=== PATIENT | female | born 1985 | race Two or more races ===

== ENCOUNTER 2016-11-10 10:51 | Inpatient (IN) ==
--- NOTE | 2016-11-10 11:44 | Emergency Department Note ---
Tonia Ayala Mantricia, am scribing for, and in the presence of, Guillermo Estrada MD 11:29. Natalie Ayala James D, MD, personally performed the services described in this documentation, ascribed by Anthony Randall in my presence, and it is both accurate and complete . Arrival - Arrival Chief Complaint: Urogenital - Female Stated Complaint: preg/bleeding and cramping ED Nursing Triage Note: reports that she was having abd cramping and went to bathroom and had clear fluid come out and can feel something trying to come out of vagina. denies bleeding. a1 is about 18 weeks Mode of Arrival: Wheelchair Limitations: No Limitations Source: Patient Time Seen by Provider: 11/10/16 11:16 - History of Present Illness HPI Narrative: Pt is a 31 y/o female arriving to ED via wheelchair with c/o abdominal cramping that onset today. She reports that she is 18 weeks and has experienced abdominal cramps today. Pt reports that once using the restroom, she saw drainage and seemed like "something was in her vagina." She states that her LNMP was 07/11/16 and is due 03/2016. She states that she will see her OBGYN next week for an ultrasound. A1. No other complaints were reported to ED. Onset (ago): hour(s) Consistency: constant Severity: mild Allergies/Adverse Reactions: Allergies Allergy/AdvReac Type Severity Reaction Status Date / Time No Known Allergies Allergy Unverified 08/29/16 10:21 Home Medications: Home Medications Medication Instructions Recorded Confirmed Type No122/Iron/Folic Acid 1 each PO QAM 11/10/16 11/10/16 History [ Multi Tablet] Review of System - Review of System 12 point system: reviewed and no additional remarkable complaints except as stated - Review of System Constitutional: Absent: chills, diaphoresis, fever Respiratory: Absent: cough Cardiovascular: Absent: chest pain Gastrointestinal: Present: abdominal pain (cramps). Absent: nausea, vomiting, diarrhea Genitourinary female: Present: other ("something in vagina"). Absent: abnormal menses, dysuria Musculoskeletal: Absent: arm pain, back pain, leg pain, neck pain Medical,Surgical,& Family Hx - Medical History Neurology: No history of: Seizures - Social History Smoking Status: Never smoker Exam Vital Signs: Vital Signs Temperature 97.4 F L 11/10/16 10:54 Pulse Rate 89 11/10/16 10:54 Respiratory Rate 18 11/10/16 10:54 Blood Pressure 121/82 11/10/16 10:54 O2 Sat by Pulse Oximetry 98 11/10/16 10:54 GENERAL: This is a well-nourished well-developed female in no apparent distress. VITAL SIGNS: Reviewed HEENT: Head is atraumatic and normocephalic. Pupils are equal round react to light. Extraocular movements are intact. Oropharynx is benign with moist mucous membranes. ABDOMEN: Abdomen is soft, nontender to palpation. Gravid abdomen. Fundus palpable at umbilicus. There are no abdominal abnormal masses palpated. Bowel sounds are present and active. SKIN: Skin is warm and dry. No rash. EXTREMITIES: Patient has full range of motion without tenderness. There is no pedal edema. NEUROLOGIC: Awake alert and oriented 4. Cranial nerves II through XII are grossly intact. Motor is 5 over 5 in all extremities bilaterally. Course - Consultations Consultation #1: Discussed with Dr. Genao. Patient will be admitted to Dr. Abdi. Initial orders written for her. Care will be assumed by OB upon arrival to the farrar . Time: 12:34 Disposition Clinical Impression: Pelvic pain, Threatened Case discussed with: patient Disposition: Still a Patient Condition: Stable Time of Disposition: 12:35
[2016-11-10 11:53] LABS: Apearance,Urine CLEAR (Clear); Bacteria,Urine Occasional /HPF (Few); Bilirubin,Urine Negative (Negative); Blood, Urine Negative (Negative); Glucose,Urine (UA) Negative (Negative); Ketones,Urine Negative (Negative); Mucus,Urine Occasional /LPF (Occasional); Nitrite,Urine Negative (Negative); Protein,Urine Negative; RBC,Urine <1 /HPF (0-4); Squamous Epithelial Cell,Urine Occasional /HPF (0-10); Urine Color Yellow (Yellow); Urine Specific Gravity 1.011 (1.001-1.035); Urine Urobilinogen < 2.0 EU/DL (0.2-1.0); WBC,Urine 1 /HPF (0-6)
[2016-11-10 12:52] LABS: Basophils # 0.1 10*3/uL (0.0-0.2); Basophils % 0.6 % (0.0-0.8); Eosinophils # 0.1 10*3/uL (0.0-0.87); Hematocrit 33.9 VOL% (35.7-47.0); Hemoglobin 11.2 GM/DL (12.0-16.0); Immature Granulocytes % 0.5 %; Immature Granulocytes Absolute 0.04 #; Lymphocytes # 1.8 10*3/uL (1.4-4.0); Lymphocytes % 19.7 % (21.3-54.2); Mean Corpuscular Hemoglobin 26 PG (27-34); Mean Corpuscular Volume 77.8 FL (87-102); Mean Platelet Volume 10.7 FL (9.6-12.0); Monocytes # 0.4 10*3/uL (0.11-0.8); Neutrophils # 6.5 10*3/uL (1.4-7.4); Neutrophils % 73.2 % (38.7-73.9); Platelet Count 268 T/CUMM (130-400); Red Blood Count 4.36 MC/CUMM (3.8-5.5); Red Cell Distribution Width 15.4 % (9.3-17.3); White Blood Count 8.9 T/CUMM (4-12)
[2016-11-10 13:02] LABS: INR 0.9; PT Patient Result 9.9 SECS; Partial Thromboplastin Time 26.8 SECS (0-40)
[2016-11-10 13:20] LABS: Alanine Aminotransferase 19 U/L (13-56); Albumin 2.8 G/DL (3.4-5.0); Alkaline Phosphatase 53 U/L (45-117); Aspartate Amino Transferase 19 U/L (0-37); Bilirubin,Total < 0.39 MG/DL (0.2-1.0); Blood Urea Nitrogen 10 MG/DL (7-18); Calcium 8.3 MG/DL (8.5-10.1); Glucose 78 MG/DL (74-106); Osmolality,Calculated 276.4 MOS/KG (273-304); Sodium 140 MMOL/L (136-145); Total Protein 6.7 G/DL (6.4-8.3)
[2016-11-10] MEDS ORDERED: MAGNESIUM HYDROXIDE SUSP 30 ML UDCUP PO PRN (13:43)
[2016-11-10] MEDS ORDERED: BISACODYL 10 MG SUPP RECTAL PRN (13:43)
[2016-11-10] MEDS ORDERED: ACETAMINOPHEN 325 MG TABLET PO PRN (13:43)
--- NOTE | 2016-11-10 15:11 | Ultrasound Report ---
Limited OB ultrasound. Indication: Pelvic pain and pressure. Spotting. Comparison: August 29, 2016. There is a single intrauterine gestation in a transverse lie. There is no amnionic fluid within the uterus. There is partial effacement and dilatation of the cervix, with bulging membranes containing fluid within the vaginal canal. The placenta is located fundal. The heart rate is 152 bpm. There is increased soft tissue along the posterior margin of the cervix, which is separate from the fetus and separate from the placenta. This may represent an area of lower uterine segment contraction. The maternal ovaries are not seen. Impression: There is dilatation of the cervix and bulging membranes within the vaginal canal. There is no fluid surrounding the fetus within the uterus. The Ultrasound images were captured and stored. PROCEDURE INTERPRETED AT [facility] DEPARTMENT OF RADIOLOGY Final Report Signed by: Dr. Maxine Rockwell
[2016-11-10] MEDS: DOCUSATE SODIUM 100 MG CAPSULE PO SCH (20:55)
[2016-11-10] MEDS: LACTATED RINGERS 1,000 ML IV SCH ×2 (21:50→21:51)
[2016-11-10] MEDS: ACETAMINOPHEN 500 MG TABLET PO PRN (21:55)
[2016-11-11] MEDS: LACTATED RINGERS 1,000 ML IV SCH ×2 (01:07→10:57)
--- NOTE | 2016-11-11 08:49 | OB/GYN History & Physical ---
History of Present Illness Chief complaint: Pelvic pressure History of present illness: Ms. Chan is a 31 year old female 17+ weeks gestation who presented with complaints of vaginal pressure. Upon examination she was found to have hourglassing membranes into the vagina. On ultrasound she was found to have a viable IUP however all amniotic fluid. Hourglass to the vagina. Home Medications Medication Instructions Recorded Confirmed Type No122/Iron/Folic Acid 1 each PO QAM 11/10/16 11/10/16 History [ Multi Tablet] Allergies Allergy/AdvReac Type Severity Reaction Status Date / Time No Known Allergies Allergy Unverified 08/29/16 10:21 12 point system: reviewed and no additional remarkable complaints except as stated Medical,Surgical,& Family Hx - Medical History Neurology: No history of: Seizures - Social History Smoking Status: Never smoker Exam AGENT BROKER - Constitutional Vitals: Vital Signs Temp Pulse Pulse Resp BP BP Pulse Ox 11/11/16 08:00 97.1 F L 73 18 94/51 11/11/16 04:00 97.6 F 68 18 89/50 11/11/16 00:00 97.6 F 81 18 103/59 11/10/16 20:00 98 F 75 18 113/69 11/10/16 16:00 97.1 F L 82 18 100/56 11/10/16 12:50 79 16 116/71 100 11/10/16 12:30 78 16 121/79 100 11/10/16 12:00 73 16 110/62 100 11/10/16 11:30 79 16 116/74 100 11/10/16 11:02 82 16 123/73 100 11/10/16 10:54 97.4 F L 89 18 121/82 98 Pulse Ox 11/11/16 08:00 99 11/11/16 04:00 11/11/16 00:00 98 11/10/16 20:00 100 11/10/16 16:00 99 11/10/16 12:50 11/10/16 12:30 11/10/16 12:00 11/10/16 11:30 11/10/16 11:02 11/10/16 10:54 General appearance: no acute distress - Antepartum / Post Antepartum Exam Cervix - Dilatation: Membranes bulging through cervical os Station: parts in the vagina Rupture: Intact hourglassing into the vagina Abdomen obstetrics: Present: bowel sounds normal - Head Head exam: Present: normocephalic - ENT ENT exam: Present: normal exam - Neck Neck exam: Present: normal inspection - Respiratory Respiratory exam: Present: clear to auscultation bilaterally - Cardiovascular Cardiovascular exam: Present: regular rate and rhythm - GI/Abdominal GI/Abdominal exam: Present: normal bowel sounds, soft - Extremities Exam Extremities exam: Present: normal inspection - Back Exam Back exam: Present: normal inspection - Neurological Exam Neurological exam: Present: alert, oriented X3 - Psychiatric Psychiatric exam: Present: normal affect, normal mood - Skin Skin exam: Present: normal color, warm Assessment and Plan (1) labor in second trimester Status: Acute Assessment and plan: Patient placed in Trendelenburg position. I had a lengthy discussion with her and her regarding her risk of infection, premature delivery, and the risk of severe prematurity. We discussed conservative management, expectant management, as well as termination of . Patient was last to discuss her options with her at this time. Current Visit: Yes (2) 17 weeks gestation of Status: Acute Current Visit: Yes Results - Labs CBC & BMP: 11/13/16 05:19 11/10/16 12:34
[2016-11-11] MEDS: DOCUSATE SODIUM 100 MG CAPSULE PO SCH ×3 (18:49→21:15)
[2016-11-11] MEDS ORDERED: BUTORPHANOL 2 MG/ML VIAL IV PRN (22:44)
[2016-11-12] MEDS ORDERED: OXYTOCIN/LR 20 UNIT/1,000 ML BAG IV ONE ×2 (07:25→15:45)
[2016-11-12] MEDS ORDERED: miSOPROStol 200 MCG TABLET ONE (07:25)
--- NOTE | 2016-11-12 09:16 | OB/GYN Progress Note ---
Assessment and Plan (1) labor in second trimester Status: Acute Assessment and plan: Patient placed in Trendelenburg position. I had a lengthy discussion with her and her regarding her risk of infection, premature delivery, and the risk of severe prematurity. We discussed conservative management, expectant management, as well as termination of . Patient was last to discuss her options with her at this time. Following another discussion with the family they have decided to proceed with expedited termination of this . Therefore the fore bag was ruptured the expected vaginal delivery sometime today. Patient started on IV Ancef 2 g q. 8 as fluid has a foul-smelling odor. Current Visit: Yes (2) 17 weeks gestation of Status: Acute Current Visit: Yes PLUMBER SUPERVISOR - PN: Subj Interval history: Patient admits to leaking of fluid earlier this morning Exam PLUMBER SUPERVISOR - Constitutional Vitals: Vital Signs Temp Pulse Resp BP Pulse Ox 11/12/16 07:31 97.3 F L 77 20 101/56 99 11/12/16 00:00 98 F 73 18 105/53 98 11/11/16 23:30 98.0 F 73 18 105/53 98 11/11/16 16:00 97.3 F L 84 16 90/52 11/11/16 12:00 97.4 F L 81 18 87/49 - Antepartum / Post Antepartum Exam Cervix - Dilatation: 5-6 cm Effacement: 70% Station: parts in the vaginal vault Rupture: Ruptured membrane with foul-smelling fluid. For bag Results - Labs CBC & BMP: 11/10/16 12:34 11/10/16 12:34
[2016-11-12] MEDS: ceFAZolin 2,000 MG in PREMIX 1 EACH IV SCH ×2 (09:25→17:00)
[2016-11-12] MEDS: ACETAMINOPHEN 500 MG TABLET PO PRN (09:49)
[2016-11-12] MEDS: ONDANSETRON 4 MG/2 ML VIAL IV PRN ×2 (09:50→17:11)
[2016-11-12] MEDS: DOCUSATE SODIUM 100 MG CAPSULE PO SCH (10:31)
[2016-11-12] MEDS ORDERED: oxyCODONE/ACETAMINOPHEN 5-325 MG TABLET PO PRN ×2 (15:45)
[2016-11-12] MEDS ORDERED: HYDROCORTISONE 2.5% RECTAL CREAM 30 GM TUBE TOP PRN (15:45)
[2016-11-12] MEDS ORDERED: MEASLES/MUMPS/RUBELLA VACCINE 0.5 ML VIAL SUBCUT ONE (15:45)
[2016-11-12] MEDS ORDERED: BENZOCAINE 20%/MENTHOL 0.5% SPRAY 56 GM CAN TOP PRN (15:45)
[2016-11-12] MEDS ORDERED: ONDANSETRON 4 MG/2 ML VIAL IV PRN (15:45)
[2016-11-12] MEDS ORDERED: LANOLIN 50% CREAM 0.3 OZ TUBE TOP PRN (15:45)
[2016-11-12] MEDS ORDERED: RHO(D) IMMUNE GLOBULIN 300 MCG SYRINGE IM ONE (15:45)
[2016-11-12] MEDS ORDERED: WITCH HAZEL PADS 100/JAR TOP PRN (15:45)
[2016-11-12] MEDS ORDERED: IBUPROFEN 800 MG TABLET PO PRN (15:45)
[2016-11-12] MEDS ORDERED: DIPH/TET/ACEL PERT BOOSTER VACCINE 0.5 ML VIAL IM ONE (15:45)
[2016-11-12] MEDS ORDERED: ACETAMINOPHEN 325 MG TABLET PO PRN (15:45)
[2016-11-12] MEDS ORDERED: BISACODYL 10 MG SUPP RECTAL PRN (15:45)
--- NOTE | 2016-11-12 15:45 | Operative Note ---
Date of procedure: 11/12/16 Procedure Preformed: Spontaneous vaginal delivery of a 17 week fetus Patient spontaneously delivered stillborn fetus at 17 weeks via spontaneous vaginal delivery. The umbilical cord was clamped and cut and left to deliver spontaneously. Patient tolerated procedure well without compensation incident. Perineum intact. Bleeding well controlled. Surgeon / Physician: Rosanne Abdi Post-op diagnosis: same Findings: Stillborn fetus at 17 weeks Specimens: other (Placenta to be sent) Estimated blood loss: other (50 mL) Condition: stable Anesthesia: none Disposition: other (Labor and delivery)
[2016-11-12] MEDS ORDERED: DOCUSATE SODIUM 100 MG CAPSULE PO SCH (21:00)
[2016-11-13 06:18] LABS: Basophils % 0.3 % (0.0-0.8); Eosinophils # 0.1 10*3/uL (0.0-0.87); Hematocrit 26.8 VOL% (35.7-47.0); Hemoglobin 8.7 GM/DL (12.0-16.0); Immature Granulocytes % 0.3 %; Immature Granulocytes Absolute 0.04 #; Lymphocytes # 2.2 10*3/uL (1.4-4.0); Lymphocytes % 19.2 % (21.3-54.2); Mean Corpuscular HGB Conc 32.5 GM/DL (32-36); Mean Corpuscular Hemoglobin 26 PG (27-34); Mean Corpuscular Volume 78.6 FL (87-102); Mean Platelet Volume 11.3 FL (9.6-12.0); Monocytes # 0.7 10*3/uL (0.11-0.8); Monocytes % 5.7 % (1.7-12.7); Neutrophils # 8.4 10*3/uL (1.4-7.4); Neutrophils % 73.5 % (38.7-73.9); Platelet Count 258 T/CUMM (130-400); Red Blood Count 3.41 MC/CUMM (3.8-5.5); Red Cell Distribution Width 15.3 % (9.3-17.3); White Blood Count 11.4 T/CUMM (4-12)
[2016-11-13 07:36] VITALS: BP 93/50
--- NOTE | 2016-11-13 08:03 | Discharge Summary ---
Hospital Course - Hospital Course Hospital Course: This is a 31-year-old female admitted 17 weeks gestation secondary to inevitable AB. On admission patient was found to have her bag of water bulging into the vagina with parts palpable. She subsequently ruptured her membranes within 24 hours of admission and delivered spontaneously a stillborn previable 17 week fetus. Diagnosis - Discharge Diagnosis (1) labor in second trimester Status: Acute (2) 17 weeks gestation of Status: Acute Discharge Plan - Discharge Data Disposition: Disch To Home/Self Care Condition at Discharge: Stable Discharge Diet: advance to your usual diet Activity: resume usual activities as tolerated (Pelvic rest) Hygiene: no restrictions Weight Bearing at Discharge: full weight bearing Driving: no restrictions Contact your physician if you experience:: fever over 101, Difficulty voiding, Redness or swelling, Nausea/Vomiting, Shortness of breath, Bleeding, pain uncontrolled by pain medications - Discharge Medications New HYDROcodone/ACETAMIN 5-325 [[place] 5-325] 1 tablet PO Q4H PRN #30 tablet PRN Reason: Pain Moderate (4-7) No Action No122/Iron/Folic Acid [ Multi Tablet] 1 each PO QAM - Follow Up or Referral Follow Up: Rosanne Abdi MD [Physician] - 1 Month - Forms/Instructions Exam - Constitutional Vitals: Period Temp Pulse Resp BP Sys/Stover Pulse Ox Last 24 Hr 97.3 F-98.8 F 68-100 17-20 93-115/50-71 98-99 General appearance: no acute distress - Head Head exam: Present: normocephalic - ENT ENT exam: Present: normal exam - Neck Neck exam: Present: normal inspection - Respiratory Respiratory exam: Present: clear to auscultation bilaterally - Cardiovascular Cardiovascular exam: Present: regular rate and rhythm - GI/Abdominal GI/Abdominal exam: Present: normal bowel sounds, soft - Extremities Exam Extremities exam: Present: normal inspection - Back Exam Back exam: Present: normal inspection - Neurological Exam Neurological exam: Present: alert, oriented X3 - Psychiatric Psychiatric exam: Present: normal affect, normal mood - Skin Skin exam: Present: normal color, warm Discharge Results Procedures and tests throughout hospitalization: Pending Orders 11/12/16 20:05 Anaerobic Culture Stat Anaerobic Culture Stat Wound Culture Stat Wound Culture Stat Labs on day of discharge: Labs from last 24 hours 11/13/16 05:19 WBC 11.4 RBC 3.41 L D Hgb 8.7 L D Hct 26.8 L MCV 78.6 L MCH 26 L MCHC 32.5 RDW 15.3 Plt Count 258 MPV 11.3 Neut % (Auto) 73.5 Lymph % (Auto) 19.2 L [place] % (Auto) 5.7 Eos % (Auto) 1.0 Baso % (Auto) 0.3 Neut # (Auto) 8.4 H Lymph # (Auto) 2.2 [place] # (Auto) 0.7 Eos # (Auto) 0.1 Baso # (Auto) 0.0 Immature Gran % 0.3 Nucleated RBC % 0.0 Immature Gran # 0.04 Nucleated RBCs # 0.00 Immature Plt Fraction 0.0 DS: Provider Date of admission: 11/11/16 08:45 Primary care physician: . No PCP Attending physician on admission: Rosanne Abdi MD Consults: 11/12/16 15:45 Consult to Business Continuity Planning Director [CONS] Routine Consult Business Continuity Planning Director: Breast Feeding Discharging clinician: Rosanne Abdi MD
--- NOTE | 2016-11-15 16:15 | Pathology Report from [facility] ---
[employer] [facility] [employer] ACCESSION # : [id number] PATIENT NAME : Ava Perkins ORDERING DR : JOHN CALLEJAS MD CLINICAL HX: IUP @ 17.4 wks gestation, PROM POST-OP DX: Same SPECIMEN INFO: Placenta GROSS DESCRIPTION: The specimen is received fresh labeled AVA PERKINS consists of a 105.0 gm placenta measuring 12.5 x 8.5 x 1.8 cm. The membranes are pink-platt and translucent. The umbilical cord measures 19.0 cm and is essentially inserted. The number of vessels difficult to grossly determine. The surface is oneill-pink and intact. The maternal surface is mildly disrupted with a 4.5 x 4.0 cm possible infarct noted. Sections submitted : (A) membranes and cord, (B) and maternal surfaces. DIAGNOSIS FOR AVA PERKINS: PLACENTA: Immature (2nd trimester) placenta with acute chorioamnionitis and focal infarction and necrosis. Bivascular umbilical cord. COLLECTED DATE: 11/13/2016 [facility] REPORT DATE: 11/15/2016 ELECTRONICALLY SIGNED BY: Curtis Craig III, M.D. 11/15/2016 - 12:14:20 JAXSON
== END 2016-11-13 11:29 | disposition home or self-care (01) | DRG 564 ==
LOC: N.EDINP 10:51 → N.ED 10:51 → N.EDINP 12:58 → N.LD 13:18
PROVIDERS: ADMIT Obstetrics & Gynecology; ATTEND Obstetrics & Gynecology

== ENCOUNTER 2016-12-17 12:40 | Observation (INO) ==
[2016-12-17 13:15] LABS: Apearance,Urine Clear (Clear); Bilirubin,Urine Negative (Negative); Blood, Urine Small mg/dL (Negative); Glucose,Urine (UA) Negative (Negative); Ketones,Urine Negative (Negative); Nitrite,Urine Negative (Negative); Protein,Urine 30 MG/DL
[2016-12-17 13:16] LABS: Urine Color Yellow (Yellow); Urine Urobilinogen 0.2 EU/DL (0.2-1.0)
[2016-12-17] MEDS ORDERED: SODIUM CHLORIDE 0.9% 1,000 ML IV STA (13:25)
[2016-12-17] MEDS ORDERED: ONDANSETRON 4 MG/2 ML VIAL IV STA (13:25)
[2016-12-17] MEDS ORDERED: MORPHINE 2 MG/1 ML SYRINGE IV STA (13:25)
[2016-12-17 13:41] LABS: Basophils # 0.1 10*3/uL (0.0-0.2); Basophils % 0.7 % (0.0-0.8); Eosinophils # 0.1 10*3/uL (0.0-0.87); Eosinophils % 1.4 % (0.00-10.9); Hematocrit 30.4 VOL% (35.7-47.0); Hemoglobin 9.6 GM/DL (12.0-16.0); Immature Granulocytes % 0.3 %; Immature Granulocytes Absolute 0.02 #; Lymphocytes # 1.4 10*3/uL (1.4-4.0); Lymphocytes % 19.3 % (21.3-54.2); Mean Corpuscular HGB Conc 31.6 GM/DL (32-36); Mean Corpuscular Hemoglobin 24 PG (27-34); Mean Corpuscular Volume 77.2 FL (87-102); Mean Platelet Volume 11.1 FL (9.6-12.0); Monocytes # 0.5 10*3/uL (0.11-0.8); Monocytes % 6.8 % (1.7-12.7); Neutrophils # 5.3 10*3/uL (1.4-7.4); Neutrophils % 71.5 % (38.7-73.9); Platelet Count 351 T/CUMM (130-400); Red Blood Count 3.94 MC/CUMM (3.8-5.5); Red Cell Distribution Width 13.9 % (9.3-17.3); White Blood Count 7.4 T/CUMM (4-12)
[2016-12-17] MEDS ORDERED: ONDANSETRON 4 MG/2 ML VIAL ONE (13:46)
[2016-12-17] MEDS ORDERED: MORPHINE 2 MG/1 ML SYRINGE ONE (13:46)
[2016-12-17 14:16] LABS: Albumin 3.4 G/DL (3.4-5.0); Bilirubin,Total 0.4 MG/DL (0.2-1.0); Calcium 8.3 MG/DL (8.5-10.1); Osmolality,Calculated 274.5 MOS/KG (273-304); Potassium 3.5 MMOL/L (3.5-5.1); Total Protein 7.4 G/DL (6.4-8.3)
[2016-12-17 15:32] LABS: RBC,Urine <1 /HPF (0-4); WBC,Urine <1 /HPF (0-6)
[2016-12-17] MEDS ORDERED: ONDANSETRON 4 MG/2 ML VIAL IV PRN (16:56)
[2016-12-17] MEDS ORDERED: BISACODYL 5 MG TABLET PO PRN (16:56)
[2016-12-17] MEDS ORDERED: KETOROLAC 15 MG/1 ML VIAL IV PRN (16:56)
[2016-12-17] MEDS ORDERED: BISACODYL 10 MG SUPP RECTAL PRN (16:56)
[2016-12-17] MEDS ORDERED: ALUMINUM/MAGNES/SIMETH MAX STR 30 ML UDCUP PO PRN (16:56)
[2016-12-17] MEDS: DEXTROSE 5% NACL 0.45% 1,000 ML IV SCH (18:49)
[2016-12-17] MEDS: PIPERACILLIN/TAZOBACTAM 3,375 MG in SODIUM CHLORIDE 0.9% 100 ML IV SCH (18:50)
[2016-12-17] MEDS: ACETAMINOPHEN 325 MG TABLET PO PRN (18:57)
[2016-12-17] MEDS: DOCUSATE SODIUM 100 MG CAPSULE PO SCH (20:23)
[2016-12-18] MEDS: PIPERACILLIN/TAZOBACTAM 3,375 MG in SODIUM CHLORIDE 0.9% 100 ML IV SCH ×3 (03:00→17:53)
[2016-12-18] MEDS: DEXTROSE 5% NACL 0.45% 1,000 ML IV SCH ×3 (07:15→15:00)
[2016-12-18] MEDS: PANTOPRAZOLE 40 MG TABLET PO SCH (09:35)
[2016-12-18] MEDS: DOCUSATE SODIUM 100 MG CAPSULE PO SCH ×2 (09:35→21:35)
[2016-12-18] MEDS: ACETAMINOPHEN 325 MG TABLET PO PRN (21:35)
[2016-12-19] MEDS: PIPERACILLIN/TAZOBACTAM 3,375 MG in SODIUM CHLORIDE 0.9% 100 ML IV SCH ×2 (01:35→10:53)
[2016-12-19] MEDS: DEXTROSE 5% NACL 0.45% 1,000 ML IV SCH ×3 (01:37→17:00)
[2016-12-19] MEDS: PANTOPRAZOLE 40 MG TABLET PO SCH (08:00)
[2016-12-19] MEDS: DOCUSATE SODIUM 100 MG CAPSULE PO SCH ×2 (08:00→21:48)
[2016-12-19] MEDS ORDERED: LIDOCAINE 1% 5 ML VIAL ONE (17:55)
[2016-12-19] MEDS ORDERED: ONDANSETRON 4 MG/2 ML VIAL ONE (17:55)
[2016-12-19] MEDS ORDERED: NEOSTIGMINE 10 MG/10 ML VIAL ONE (17:55)
[2016-12-19] MEDS ORDERED: GLYCOPYRROLATE 0.4 MG/2 ML VIAL ONE (17:55)
[2016-12-19] MEDS ORDERED: DEXAMETHASONE 10 MG/1 ML VIAL ONE (17:55)
[2016-12-19] MEDS ORDERED: PROPOFOL 200 MG/20 ML VIAL IV ONE (17:55)
[2016-12-19] MEDS ORDERED: KETOROLAC 30 MG/1 ML VIAL ONE (17:55)
[2016-12-19] MEDS: LACTATED RINGERS 1,000 ML IV SCH ×2 (17:55→19:00)
[2016-12-19] MEDS ORDERED: ROCURONIUM 100 MG/10 ML VIAL IV ONE (17:55)
[2016-12-19] MEDS ORDERED: TISSUE ADHESIVE 1 EACH APPLICATOR TOP ONE (19:13)
[2016-12-19] MEDS ORDERED: fentaNYL 100 MCG/2 ML VIAL ONE (19:40)
[2016-12-19] MEDS ORDERED: SEVOFLURANE 1 UNIT/15 MINUTE INH ONE (19:40)
[2016-12-19] MEDS ORDERED: MIDAZOLAM 2 MG/2 ML VIAL ONE (19:40)
[2016-12-19] MEDS ORDERED: ACETAMINOPHEN 1,000 MG/100 ML VIAL IV ONE (19:41)
[2016-12-19] MEDS ORDERED: LACTATED RINGERS 1,000 ML IV ONE (19:41)
[2016-12-19] MEDS: HYDROmorphone 2 MG/1 ML VIAL IV PRN ×2 (19:45→19:55)
[2016-12-19] MEDS ORDERED: ONDANSETRON 4 MG/2 ML VIAL IV PRN (19:45)
[2016-12-19] MEDS ORDERED: HYDROmorphone 2 MG/1 ML VIAL IV PRN (20:37)
[2016-12-20] MEDS: DEXTROSE 5% NACL 0.45% 1,000 ML IV SCH (02:42)
[2016-12-20] MEDS: PANTOPRAZOLE 40 MG TABLET PO SCH (09:20)
[2016-12-20] MEDS: DOCUSATE SODIUM 100 MG CAPSULE PO SCH (09:20)
[2016-12-20 12:51] VITALS: BP 111/67
== END 2016-12-20 14:16 | disposition home or self-care (01) ==
LOC: N.ED 12:40 → N.EDINP 12:40 → N.3E 17:00
PROVIDERS: ADMIT Surgery; ATTEND Surgery